=== PATIENT | male | born 1990 | race Caucasian/White ===

== ENCOUNTER 2017-03-06 09:41 | Emergency (ER) | payer BC ==
--- NOTE | 2017-03-06 09:57 | ED Physician Documentation ---
Syncope/Near Syncope - HISTORIAN Historian: patient - [facility] Chief Complaint: Syncope Witnessed: Yes Witnessed By: friend Position at Time of Episode: standing Activity at Time of Episode: walking Symptoms Prior to Episode: none Character of Events(s): lost consciousness Duration of Loss of Consciousness: unknown Last known Well Date: 03/06/17 Last Known Well Time: 08:45 Symptoms after Event: confused after event, dextrostick low [employer]. denies: incontinent of urine, incontinent of stool Associated Symptoms: feels back to normal Further Comments: yes - ROS CONST: denies: fever, chills EYES/ENT: denies: problems with vision GI/: diarrhea. denies: problems urinating MS/SKIN/LYMPH: denies: leg swelling, rash NEURO/PSYCH: denies: confusion, anxiety - PAST HX Cardiac Disease: other (epilepsy, usually has about one seizure a year. ) PE Risk Factors: none Other History: seizure disorder Surgeries/Procedures: none Allergies/Adverse Reactions: Allergies Allergy/AdvReac Type Severity Reaction Status Date / Time No Known Allergies Allergy Verified 03/06/17 09:59 Home Medications: Ambulatory Orders Medication Instructions Recorded Lamotrigine [Lamotrigine ER] 200 mg PO TID 03/06/17 - SOCIAL HX Smoking History: non-smoker Alcohol Use: occasionally Drug Use: none - FAMILY HX Family History: denies: seizures - REVIEWED ASSESSMENTS Nursing Assessment Reviewed: Yes Vitals Reviewed: Yes Syncope Physical Exam - Physical Exam General Appearance: no acute distress, alert Neck/Back: neck supple, non-tender, no carotid bruit. No: cerv. lymphadenopathy Respiratory: no resp distress, chest non-tender CVS: reg rate & rhythm, heart sounds normal, equal pulses, no murmur Abdomen: non-tender Skin: warm/dry, normal color Extremities: non-tender - Neuro/Psych Higher Functions: alert, oriented x3, no evidence of acute CVA, mood/affect nml , abnml respond to command Cranial Nerves: nml as tested Cerebellar: nml as tested Sensorimotor: nml motor response, nml sensory response, nml reflexes Discharge Clincal Impression: Seizure disorder Referrals: Primary Doctor,No [Primary Care Provider] - 2 Days Additional Instructions: Make sure as best you can to avoid precipitating factors that cause seizures. Continue taking medications as prescribed. If you have another seizure to return to the ED. Follow-up with Dr Yee, neurologist, as needed. Condition: Stable Disposition: 01 HOME, SELF-CARE Decision to Admit: NO Date of Decison to Admit: 03/06/17 Decision Time: 10:13
[2017-03-06 10:23] VITALS: BP 106/74
== END 2017-03-06 10:22 | disposition home or self-care (01) ==
LOC: ED 09:41
DX: G40.909 Epilepsy, unspecified, not intractable, without status epilepticus (principal)
CPT/HCPCS: 99283